=== PATIENT | female | born 1995 | race African-American/Black ===

== ENCOUNTER 2023-05-05 00:52 | Emergency (ER) | payer MEDICAID, OTHER ==
[~2023-05-05] VITALS: Ht 154.9 cm; Wt 49.9 kg
[2023-05-05 01:07] VITALS: BP 130/81; TEMP 98.2; O2SAT 100
[2023-05-05 01:09] VITALS: PULSE 109; RESP 16
[2023-05-05] MEDS ORDERED: LIDOCAINE HCL/PF 1% 10 MG/ML 5ML VIAL INFIL ONE (02:15)
[2023-05-05] MEDS ORDERED: KETOROLAC 30MG/ML VIAL IM ONE (02:15)
[2023-05-05] MEDS ORDERED: BACITRACIN ZINC OINT UDPKT TOP ONE (02:15)
[2023-05-05] MEDS ORDERED: TETANUS, DIPHTHERIA, PERTUSSIS VAC/PF 0.5ML (>10YR OLD) IM ONE (02:30)
[2023-05-05] MEDS ORDERED: NAPR-1176 MT (02:37)
== END 2023-05-05 03:21 | disposition home or self-care (01) ==
LOC: ER 00:52
DX: S01.112A Laceration without foreign body of left eyelid and periocular area, initial encounter (principal); V49.9XXA Car occupant (driver) (passenger) injured in unspecified traffic accident, initial encounter; Y93.89 Activity, other specified; Y92.89 Other specified places as the place of occurrence of the external cause; Y99.8 Other external cause status
CPT/HCPCS: 99284; 81025; 90715; 12011; 90471; 96372; J1885; J3490

== ENCOUNTER 2023-05-19 19:46 | Emergency (ER) | payer MEDICAID, OTHER ==
[~2023-05-19] VITALS: Ht 154.9 cm; Wt 50.0 kg
[~2023-05-19 19:46] MED LIST: NAPR-1176 MT
[2023-05-19 19:51] VITALS: O2SAT 99
[2023-05-19 20:56] VITALS: BP 118/67; PULSE 81; RESP 16; TEMP 98.3
== END 2023-05-19 21:32 | disposition home or self-care (01) ==
LOC: ER 19:46
DX: S01.91XD Laceration without foreign body of unspecified part of head, subsequent encounter (principal); Z98.890 Other specified postprocedural states; X58.XXXD Exposure to other specified factors, subsequent encounter
CPT/HCPCS: 99281; Z7610